=== PATIENT | male | born 1975 | race Caucasian/White ===

== ENCOUNTER 2018-07-10 18:43 | Inpatient (IN) | payer MEDICAID ==
[~2018-07-10] VITALS: Ht 175.3 cm; Wt 89.8 kg
[2018-07-10 19:21] LABS: BASOPHILS % (AUTO) 0.6 % (0.0-2.0); EOSINOPHILS % (AUTO) 1.9 % (1.0-6.0); HEMATOCRIT 43.4 % (41-53); HEMOGLOBIN 15.3 g/dL (13.5-17.5); LYMPHOCYTES # (AUTO) 2.5 K/uL (1.0-4.8); LYMPHOCYTES % (AUTO) 36.1 % (22.0-44.0); MEAN CORPUSCULAR HGB CONC 35.1 G/dL (31.0-37.0); MEAN CORPUSCULAR VOLUME 85 fL (80-100); MONOCYTES # (AUTO) 0.7 K/uL (0.1-1.0); MONOCYTES % (AUTO) 10.6 % (2.0-9.0); NEUTROPHILS # (AUTO) 3.5 K/uL (1.8-7.7); NEUTROPHILS % (AUTO) 50.8 % (40.0-70.0); PLATELET COUNT (AUTO) 220 K/uL (150-450); RED CELL DISTRIBUTION WIDTH 12.8 % (11.5-14.5)
[2018-07-10 19:44] LABS: ANION GAP 4 mmol/L (8-16); CALCIUM, TOTAL 9.1 mg/dL (8.8-10.5); CARBON DIOXIDE 31 mmol/L (22-29); CHLORIDE 102 mmol/L (98-107); CREATININE 1.25 mg/dL (0.60-1.30); GLOMERULAR FILTR. RATE CALC > 60 mL/min (>60); GLUCOSE,RANDOM 109 mg/dL (70-110); POTASSIUM 4.6 mmol/L (3.5-5.1); SODIUM SERUM 137 mmol/L (136-145); UREA NITROGEN, BLOOD 13 mg/dL (7-18)
[2018-07-10 19:47] LABS: ALANINE AMINOTRANSFERASE 64 U/L (12-78); ALBUMIN 3.9 g/dL (3.4-5.0); ALKALINE PHOSPHATASE 71 U/L (46-116); ASPARTATE AMINOTRANSFERASE 52 U/L (15-37); BILIRUBIN,TOTAL 0.8 mg/dL (0.1-1.0); TOTAL PROTEIN, SERUM 7.1 g/dL (6.4-8.2)
[2018-07-10] MEDS ORDERED: SERT50TA12 PO (22:01)
[2018-07-10] MEDS ORDERED: ZOLPIDEM TARTRATE 10 MG TABLET PO PRN (23:15)
[2018-07-10 23:41] LABS: AMPHET/METH SCREEN,URINE NEGATIVE (NEGATIVE); BARBITURATE SCREEN, URINE NEGATIVE (NEGATIVE); BENZODIAZEPINES SCREEN,URINE NEGATIVE (NEGATIVE); CANNABINOID SCREEN,URINE NEGATIVE (NEGATIVE); COCAINE SCREEN,URINE NEGATIVE (NEGATIVE); METHADONE SCREEN, URINE NEGATIVE (NEGATIVE); OPIATE SCREEN,URINE NEGATIVE (NEGATIVE)
[2018-07-10 23:42] LABS: PHENCYCLIDINE SCREEN,URINE NEGATIVE (NEGATIVE)
[2018-07-10 23:54] LABS: CHOL/HDL RATIO 3.3 (4.2-7.3); CHOLESTEROL 196 mg/dL (131-200); FREE T4 (FREE THYROXINE) 1.21 ng/dL (0.76-1.46); HDL CHOLESTEROL 60 mg/dL (40-60); LDL CHOL (CALC.) 113 mg/dL (0-130); THYROID STIMULATING HORMONE 4.09 uIU/mL (0.36-3.74); TRIGLYCERIDES 115 mg/dL (15-150)
[2018-07-11 15:07] VITALS: BP 134/69
[2018-07-11] MEDS: LORazepam 2 MG TABLET PO PRN (16:43)
[2018-07-11] MEDS: HALOPERIDOL 5 MG TABLET PO PRN (16:43)
[2018-07-11 19:48] VITALS: BP 121/81
[2018-07-12 01:11] VITALS: BP 116/63
[2018-07-12 08:24] VITALS: BP 120/60
[2018-07-12 08:43] LABS: CHOL/HDL RATIO 3.4 (4.2-7.3)
[2018-07-12] MEDS: NICOTINE 21 MG/24 HOUR PATCH TD SCH (09:47)
[2018-07-12] MEDS: HALOPERIDOL 5 MG TABLET PO PRN ×2 (11:47→17:43)
[2018-07-12] MEDS: LORazepam 2 MG TABLET PO PRN ×2 (11:47→17:43)
[2018-07-12] MEDS: ARIPiprazole 5 MG TABLET PO SCH (12:55)
[2018-07-12 16:14] VITALS: BP 124/76
[2018-07-12] MEDS ORDERED: MIRTAZAPINE 15 MG TABLET PO SCH (21:00)
[2018-07-13 06:40] VITALS: BP 119/78
[2018-07-13 08:12] VITALS: BP 114/61
[2018-07-13] MEDS: ARIPiprazole 5 MG TABLET PO SCH (09:32)
[2018-07-13] MEDS: NICOTINE 21 MG/24 HOUR PATCH TD SCH (09:33)
[2018-07-13] MEDS: LORazepam 2 MG TABLET PO PRN ×2 (09:50→17:53)
[2018-07-13] MEDS: HALOPERIDOL 5 MG TABLET PO PRN ×2 (09:50→17:53)
[2018-07-13 16:35] VITALS: BP 123/66
[2018-07-13] MEDS ORDERED: MIRTAZAPINE 15 MG TABLET PO SCH (21:00)
[2018-07-14 06:12] VITALS: BP 105/65
[2018-07-14 08:25] VITALS: BP 112/65
[2018-07-14] MEDS: NICOTINE 21 MG/24 HOUR PATCH TD SCH (09:34)
[2018-07-14] MEDS: LORazepam 2 MG TABLET PO PRN (09:34)
[2018-07-14] MEDS: ARIPiprazole 5 MG TABLET PO SCH (09:34)
[2018-07-14] MEDS: HALOPERIDOL 5 MG TABLET PO PRN (09:34)
[2018-07-14] MEDS ORDERED: ARIP5TAB8 PO (11:17)
[2018-07-14] MEDS ORDERED: MIRT30 PO (11:17)
== END 2018-07-14 13:45 | disposition home or self-care (01) | DRG 751 ==
LOC: EMS 18:45 → B2S 07-11 13:41
PROVIDERS: ADMIT Psychiatry & Neurology Child & Adolescent Psychiatry; ATTEND Psychiatry & Neurology Child & Adolescent Psychiatry
DX: F33.2 Major depressive disorder, recurrent severe without psychotic features (principal); R45.851 Suicidal ideations; F20.9 Schizophrenia, unspecified; E78.5 Hyperlipidemia, unspecified; F19.90 Other psychoactive substance use, unspecified, uncomplicated; F60.3 Borderline personality disorder; Z79.899 Other long term (current) drug therapy; Z81.8 Family history of other mental and behavioral disorders; Z87.891 Personal history of nicotine dependence; Z91.5 Personal history of self-harm
CPT/HCPCS: 83036; 84439; 84443; 99285; G0480

== ENCOUNTER 2018-10-27 18:18 | Emergency (ER) | payer MEDICAID, OTHER ==
[~2018-10-27] VITALS: Ht 177.8 cm; Wt 91.8 kg
[~2018-10-27 18:18] MED LIST: ARIP5TAB8 PO; MIRT30 PO
[2018-10-27] MEDS ORDERED: SERT100T12 PO (18:34)
[2018-10-27 19:27] VITALS: BP 132/74
[2018-10-27] MEDS ORDERED: IBUPROFEN 600 MG TABLET PO ONE (19:45)
[2018-10-27] MEDS ORDERED: METHOCARBAMOL 500 MG TABLET PO ONE (19:45)
== END 2018-10-27 19:57 | disposition home or self-care (01) ==
LOC: EMS 18:20
DX: G56.22 Lesion of ulnar nerve, left upper limb (principal); J32.9 Chronic sinusitis, unspecified; J02.9 Acute pharyngitis, unspecified; F41.9 Anxiety disorder, unspecified; F31.9 Bipolar disorder, unspecified; F20.9 Schizophrenia, unspecified; F17.210 Nicotine dependence, cigarettes, uncomplicated; F11.90 Opioid use, unspecified, uncomplicated; F19.90 Other psychoactive substance use, unspecified, uncomplicated; Z88.0 Allergy status to penicillin